=== PATIENT | male | born 1950 | race Caucasian/White ===

== ENCOUNTER 2017-04-09 06:19 | Day surgery (SDC) | payer OTHER ==
[2017-04-09] MEDS ORDERED: diphenhydrAMINE 25 MG CAP PO ONE ×2 (06:31→06:55)
[2017-04-09] MEDS ORDERED: DIAZEPAM 5 MG TAB PO ONE (06:31)
[2017-04-09] MEDS ORDERED: NS 1,000 ML IV ONE (06:31)
[2017-04-09] MEDS ORDERED: FAMOTIDINE 20 MG TAB PO ONE (06:31)
[2017-04-09] MEDS ORDERED: ASPIRIN EC 325 MG TAB PO ONE ×2 (06:31→06:55)
--- NOTE | 2017-04-09 06:53 | CPEKG ---
Heart Rate: 55 RR Interval: 1091 P-R Interval: 188 QRSD Interval: 90 QT Interval: 448 QTC Interval: 429 P [place]: 35 QRS [place]: -2 T Wave [place]: 27 EKG Severity - NORMAL ECG - EKG Impression: SINUS RHYTHM Electronically Signed By: Blane Soriano 09-Apr-2017 12:50:29
[2017-04-09] MEDS ORDERED: FAMOTIDINE 20 MG TAB ONE (06:55)
[2017-04-09] MEDS ORDERED: DIAZEPAM 5 MG TAB ONE (06:56)
[2017-04-09 07:06] LABS: % IMMATURE GRANULYOCYTES 0.3 % (0.0-1.1); ABSOLUTE IMMATURE GRANULOCYTES 0.02 10^3/uL (0.00-0.10); ADD DIFF? NO; ADD MORPH? NO; ADD SCAN? NO; ATYPICAL LYMPHOCYTE FLAG 0 (0-99); FRAGMENT RBC FLAG 0 (0-99); HEMATOCRIT 41.8 % (40.0-51.0); HEMOGLOBIN 14.3 g/dL (13.7-17.5); LEFT SHIFT FLG 0 (0-99); LIPEMIA HEMOLYSIS FLAG 90 (0-99); MEAN CELL HEMOGLOBIN 31.3 pg (27.9-34.1); MEAN CELL HEMOGLOBIN CONCENTR. 34.2 g/dL (32.4-36.7); MEAN CELL VOLUME 91.5 fL (81.5-99.8); MEAN PLATELET VOLUME 11.2 fL (8.7-11.7); PLATELET CLUMPS FLAG 10 (0-99); PLATELET COUNT 135 10^3/uL (150-400); RED BLOOD CELL COUNT 4.57 10^6/uL (4.40-6.38); RED CELL DISTRIBUTION WIDTH 12.5 % (11.5-15.2)
[2017-04-09 07:16] LABS: PROTIME(PATIENT) 13.1 SEC (12.0-15.0)
[2017-04-09 07:21] LABS: ANION GAP 13 mEq/L (8-16); CALCIUM 9.9 mg/dL (8.5-10.4); CARBON DIOXIDE 24 mEq/l (22-31); CHLORIDE 106 mEq/L (97-110); CHOLESTEROL 144 mg/dL (140-220); CHOLESTEROL/HDL RATIO 2.22 RATIO (1.00-4.97); CREATININE 0.8 mg/dL (0.7-1.3); GLOMERULAR FILTRATION RATE > 60; GLUCOSE 138 mg/dL (70-100); HIGH DENSITY LIPOPROTEIN 65 mg/dL (40-65); LOW DENSITY LIPOPROTEIN 65 mg/dL (80-100); MAGNESIUM 1.9 mg/dL (1.6-2.3); NON-HIGH DENSITY LIPOPROTEIN 79 mg/dL (90-129); POTASSIUM 4.3 mEq/L (3.5-5.2); SODIUM 143 mEq/L (134-144); TRIGLYCERIDE 72 mg/dL (40-150); VERY LOW DENSITY LIPOPROTEINS 14 mg/dL (8-25)
[2017-04-09] MEDS ORDERED: LIDOCAINE 1% 300 MG/30 ML SDV ONE (07:51)
[2017-04-09] MEDS ORDERED: MIDAZOLAM 2 MG/2 ML VIAL ONE (07:51)
[2017-04-09] MEDS ORDERED: fentaNYL 100 MCG/2 ML INJ ONE (07:51)
[2017-04-09] MEDS ORDERED: IOPAMIDOL (ISOVUE-370) 150 ML BTL IV ONE (07:52)
[2017-04-09] MEDS ORDERED: HEPARIN 10,000 UNIT/10 ML MDV ONE (07:52)
[2017-04-09] MEDS ORDERED: VERAPAMIL 5 MG/2 ML VIAL ONE (07:52)
--- NOTE | 2017-04-09 09:59 | PDDXCAT ---
Diagnostic Cath Note - . Date: 04/09/17 Manager Analysis: Kira Intervention: none *Procedure 1. selective coronary angiography 2. left heart catheterization Indication: CCS Class IV unstable angina, previous cardiac arrest, and thoracic aneurysm. Access: right radial *Materials Left Heart Cath size: 5F Left Heart Cath Materials: JR4.0, JL3.5, pigtail *Findings- Selective Coronary Angiography LM: The left main is ~6 mm in size and it bifurcates into an LAD and circumflex system. There is no evidence of flow-limiting disease. LAD: The LAD is ~3.5 mm in size. There is no evidence of flow-limiting disease and there is CLIFTON III flow throughout. LCX: The LCX is ~ mm in size. There is no evidence flow-limiting obstruction. CLIFT[place] III flow is present. RCA: The RCA is ~2.5 mm in size. It is a dominant system and there is CLIFT[place] III flow throughout. There is no evidence of flow-limiting obstruction. 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 *Findings- Left Heart Catheterization LVEDP: 20 mmHg AO: 120/63/73 mmHg LVEF: 60% LV% ejection fraction with no wall motion abnormality *Summary Assessment/Conclusion: 1. Diffuse [place] vessel coronary disease. No evidence of flow-limiting obstruction in the previously stented region. There is a 5% stenosis of the stented region. 2. Thoracic aortic aneurysm, which should be tracked 3. 4. The patient should be on Complications: None Estimated Blood Loss: <50 ml Closure Method:
--- NOTE | 2017-04-10 08:46 | CPIP ---
[f rep st] INVASIVE CARDIAC PROCEDURE DATE OF PROCEDURE: 04/09/2017 PROCEDURE PERFORMED: 1. Selective coronary angiography. 2. Left heart catheterization. 3. Left ventriculogram. 4. TR band arteriotomy repair. COMPLICATIONS: None. BUSINESS OFFICE REPRESENTATIVE: Jude Malone MD. INDICATION FOR THE PROCEDURE: Recurrent chest pain reminiscent of the chest pain the patient experi enced prior to an acute myocardial infarction complicated by ventricular fibrillation arrest when he was on a plane returning from [place]. The patient survived and received a stent to the ci rcumflex obtuse marginal at and has had recurrent symptoms suggestive of angina and reminiscent o f this experience. Of note is that he had a normal nuclear stress test before so a stress test was not completed. He has CCS class 4 symptoms of angina as this is coming on at rest. PROCEDURE IN DETAIL: After informed consent was obtained, n.p.o. status was confirmed, the region o f the right wrist was cleaned, prepped, and draped in sterile fashion. Approximately 3 cc of 1% lid ocaine were utilized for local anesthesia. A 5-Ugandan sheath was placed to the right radial artery with single entry puncture of the vessel. The patient underwent the previously mentioned diagnostic procedures, with the use of JR4 and L4 curved coronary catheters as well as 5-Ugandan pigtail cathet er. Standard wire exchange technique was utilized for all catheter exchanges. The right coronary artery is dominant. Giving rise to the posterior descending is a small vessel wi th a skinner's crook deformity in its proximal segment. There was excellent and CLIFTON-3 flow to the distal vessel. The left main coronary lumen is approximately 5 mm in size. It bifurcates into an LAD and circumflex system. The circumflex vessel was approximately 3 mm in size and gives rise to i mportant obtuse marginal vessel which has been previously stented. There was no evidence of in-sten t restenosis. There was approximately 5% to 10% stenosis of the stent distal to its implantation. The stent contours are relatively smooth and there was no evidence of a filling defect to suggest th rombosis or scarring. The circumflex thereafter courses to the posterior interventricular sulcus, giving rise to a PDA that originates from the left circumflex, which makes his coronary system a cod ominant system. The LAD arises in its usual location and gives rise to important diagonal and septa l branches, all of which are free of significant flow-limiting coronary disease. The distal LAD is relatively small. There is evidence of diffuse luminal irregularities throughout the mid portion of the LAD, which is consistent with underlying atherosclerosis, maximal luminal stenosis approximatel y 20% to 25%. There is no region of the vessel which looks specifically that it would benefit from stenting as no high-grade and focal obstruction was identified. Certainly diffuse disease is presen t. The patient underwent left heart catheterization demonstrating elevated left ventricular end-diastol ic pressure measured at 24 mmHg. The patient underwent left ventriculogram in the [place] projection, d emonstrating preserved left ventricular systolic function. Ejection fraction 65%. No resting segme ntal wall motion abnormalities were identified. There is no evidence of significant mitral regurgit ation on pressurized injection of the left ventricle. 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 The proxima l portion of the aorta is dilated throughout its course and is likely frankly aneurysmal. There is evidence of diffuse atheroma involving the proximal portion of his aorta obviously without evidence of luminal obstruction or ulceration. SUMMARY OF FINDINGS: 1. Severe [place] vessel coronary disease without evidence of obstructive disease at the present aramis e. Specifically there is no evidence of in-stent restenosis to be causing any recurrence of similar symptoms. 2. Normal left ventricular chamber size and preserved left ventricular systolic function. Ejection fraction is 60% to 65%. 3. Dilated and aneurysmal proximal portion of the ascending thoracic aorta with associated atherosc lerosis. Cardiac catheterization is not a good modality to measure dilation of the thoracic aorta a nd this has been previously done by both CT and echocardiography. This should be followed periodica lly on an annual basis with either transthoracic echo or possibly more appropriately a CT thoracic a ngiogram with 3-dimensional reconstruction. With a trileaflet aortic valve, if the patient's thorac ic aorta gets above 5 cm, surgical referral could be considered. Certainly any size above 4 places the patient at risk for spontaneous aortic dissection. 4. The patient is also at risk for myocardial infarction, given underlying [place] vessel coronary d isease. It is important for him to continue risk factor modification with treatment of his choleste rol with statin therapy to achieve an LDL cholesterol less than 100, a non-HDL cholesterol which is the total minus the HDL, in mg/dL to be less than 100 mg/dL. It is also important that the patient maintain a healthy diet and exercise with a Mediterranean based diet the majority of his fat calorie s should come from a plant based source and saturated or trans fats, as well as simple sugars and co mplex carbohydrates that are low in fiber should also be avoided. Copy requested to: Dr. Robin Varela #: [id number]
== END 2017-04-09 12:30 | disposition home or self-care (01) ==
LOC: FCATH 06:19
PROVIDERS: ATTEND Internal Medicine Cardiovascular Disease
PROC: B2151ZZ Fluoroscopy of Left Heart using Low Osmolar Contrast (ICD-10-PCS; principal; 2017-04-09)
PROC: B2111ZZ Fluoroscopy of Multiple Coronary Arteries using Low Osmolar Contrast (ICD-10-PCS; principal; 2017-04-09)
PROC: 4A023N7 Measurement of Cardiac Sampling and Pressure, Left Heart, Percutaneous Approach (ICD-10-PCS; principal; 2017-04-09)
DX: R07.9 Chest pain, unspecified (principal); I25.10 Atherosclerotic heart disease of native coronary artery without angina pectoris; I71.2 Thoracic aortic aneurysm, without rupture; I10 Essential (primary) hypertension; E11.9 Type 2 diabetes mellitus without complications; I25.2 Old myocardial infarction; Z95.5 Presence of coronary angioplasty implant and graft
CPT/HCPCS: J1644; J2250; J3010; Q9967

== ENCOUNTER → 2018-10-14 | Outpatient (CLI) | payer OTHER ==
[~2018-10-14] MED LIST: IOPAMIDOL (ISOVUE 370) 100 ML BTL IV ONE
== END ==
LOC: FIMAGING 13:18
PROVIDERS: ATTEND Physician Assistant
DX: I71.2 Thoracic aortic aneurysm, without rupture (principal); I74.2 Embolism and thrombosis of arteries of the upper extremities
CPT/HCPCS: 71275; Q9967; 82565-PO

== ENCOUNTER → 2019-02-05 | Outpatient (CLI) | payer OTHER | LOC: FIMAGING 15:00 | PROVIDERS: ATTEND Family Medicine | DX: M47.27 Other spondylosis with radiculopathy, lumbosacral region (principal); M47.26 Other spondylosis with radiculopathy, lumbar region; M48.07 Spinal stenosis, lumbosacral region; M48.061 Spinal stenosis, lumbar region without neurogenic claudication ==

== ENCOUNTER 2019-02-22 06:41 | Inpatient (IN) | payer OTHER | END 2019-02-25 11:31 | disposition home health service (06) | LOC: F3N 06:41 ==

== ENCOUNTER 2019-03-05 21:53 | Emergency (ER) | payer OTHER | END 2019-03-06 02:04 | disposition home or self-care (01) ==

== ENCOUNTER → 2019-03-12 | Outpatient (CLI) | payer OTHER | LOC: FIMAGING 11:20 ==

== ENCOUNTER 2019-03-21 16:52 | Emergency (ER) | payer OTHER | END 2019-03-21 20:37 | disposition home or self-care (01) ==